=== PATIENT | female | born 1975 | race Caucasian/White ===

== ENCOUNTER 2016-03-30 22:15 | Emergency (ER) | payer BC ==
[2016-03-30] MEDS ORDERED: LIDOCAINE 2% 20 ML ONE (23:40)
[2016-03-30] MEDS ORDERED: DILAUDID 1 MG/ML AMP ONE (23:52)
[2016-03-30] MEDS ORDERED: ONDANSETRON ODT 4 MG TAB ONE (23:53)
== END 2016-03-31 00:54 | disposition home or self-care (01) ==
LOC: ER 22:15
DX: N75.1 Abscess of Bartholin's gland (principal)
CPT/HCPCS: 96372